=== PATIENT | male | born 1965 | race Caucasian/White ===

== ENCOUNTER 2019-01-20 10:52 | Day surgery (SDC) | payer BC ==
[~2019-01-20] VITALS: Ht 180.3 cm; Wt 114.3 kg
[~2019-01-20 10:52] MED LIST: Adipex-P37.5 MG PO; VALSARTAN-HCTZ1 EACH PO; VOLTAREN100 GM TOP
== END 2019-01-20 12:49 | disposition home or self-care (01) ==
LOC: ORSCSDS 10:52
PROVIDERS: Internal Medicine Gastroenterology
PROC: 0DBN8ZX Excision of Sigmoid Colon, Via Natural or Artificial Opening Endoscopic, Diagnostic (ICD-10-PCS; principal; 2019-01-20 12:15)
PROC: 0DBM8ZX Excision of Descending Colon, Via Natural or Artificial Opening Endoscopic, Diagnostic (ICD-10-PCS; principal; 2019-01-20 12:15)
DX: Z12.11 Encounter for screening for malignant neoplasm of colon (principal); D12.4 Benign neoplasm of descending colon; D12.5 Benign neoplasm of sigmoid colon; K64.8 Other hemorrhoids; I10 Essential (primary) hypertension; E66.9 Obesity, unspecified; Z68.35 Body mass index [BMI] 35.0-35.9, adult; Z79.899 Other long term (current) drug therapy
CPT/HCPCS: 88305; J2704; J7120

== ENCOUNTER 2020-04-12 15:22 | Emergency (ER) | payer OTHER, BC ==
[~2020-04-12] VITALS: Ht 180.3 cm; Wt 121.6 kg
[2020-04-12] MEDS ORDERED: MELO7.5 (16:23)
== END 2020-04-12 17:31 | disposition home or self-care (01) ==
LOC: ER 15:22
DX: S62.627B Displaced fracture of middle phalanx of left little finger, initial encounter for open fracture (principal); I10 Essential (primary) hypertension; Z23 Encounter for immunization; Z79.899 Other long term (current) drug therapy; W23.0XXA Caught, crushed, jammed, or pinched between moving objects, initial encounter; Y92.89 Other specified places as the place of occurrence of the external cause; Y99.0 Civilian activity done for income or pay
CPT/HCPCS: 29125; 73130; 90471; 90714; 96372-59; 99283-25; J0690; L3917

== ENCOUNTER 2021-11-08 11:38 | Day surgery (SDC) | payer BC ==
[~2021-11-08] VITALS: Ht 180.3 cm; Wt 127.0 kg
[~2021-11-08 11:38] MED LIST changes: +MELO7.5
[2021-11-08] MEDS ORDERED: IBUP400 PO (12:19)
--- NOTE | 2021-11-08 12:45 | NUR ---
11/08/21 1245 SUZANNE REED 1230 - Dr. Mai at bedside, time out and site check done. Pt tolerated procedure well, on 2L O2 NC.
--- NOTE | 2021-11-08 13:58 | NUR ---
11/08/21 1358 Apolinar Cheney 0.25MG EPI ADDED TO 50 ML'S 0.9% INJ SALINE TO ACHIEVE SOLUTION OF 1:200,000. DOSE VERIFED BY ORSC.KELLY AND ORSC.LUCEROH. 10 ML'S OF 0.9% INJ NACL WITH EPI 1:200,000 INTO OPSITE AT [address] OCONNOR.
--- NOTE | 2021-11-08 14:48 | NUR ---
11/08/21 1449 MALLORY PAVON PT BECOMES SLEEPY AND O2 SATS DROP IN THE 80'S. ADMITS THAT HE HAS SLEEP APNEA. O2 VIA FACE TENT AT 10L. INFORMED DR. OCONNOR OF THIS.
--- NOTE | 2021-11-08 15:10 | NUR ---
11/08/21 1510 MALLORY PAVON PT C/O NAUSEA. ZOFRAN TO BE GIVEN PER ORDERS FOR NAUSEA'
== END 2021-11-08 17:00 | disposition home or self-care (01) ==
LOC: ORSCSDS 11:38
PROVIDERS: Orthopaedic Surgery
PROC: 0RNK4ZZ Release Left Shoulder Joint, Percutaneous Endoscopic Approach (ICD-10-PCS; principal; 2021-11-08 12:45)
DX: M75.42 Impingement syndrome of left shoulder (principal); M75.52 Bursitis of left shoulder; I10 Essential (primary) hypertension; Z79.899 Other long term (current) drug therapy; Z86.16 Personal history of COVID-19; E66.01 Morbid (severe) obesity due to excess calories; Z68.41 Body mass index [BMI] 40.0-44.9, adult
CPT/HCPCS: 82947; J0171; J0690; J1100; J2250; J2370; J2405; J2550; J2704; J2765; J3010; J7120